=== PATIENT | male | born 1940 | race Caucasian/White ===

== ENCOUNTER 2017-06-01 13:14 | Emergency (ER) | payer MEDICARE, BC ==
[~2017-06-01] VITALS: Ht 175.3 cm; Wt 87.7 kg
[~2017-06-01 13:14] MED LIST: ALDACTONE 25MG25 MG PO; ASPIR-LOW81 MG PO; ATORVASTATIN PO; BETAPACE 120MG120 MG PO; BETAPACE AF120 MG PO; BUFFERED ASPIR325 M1 PO; CAPOTEN 12.512.5 MG PO; CAPTOPRIL12.5 MG PO; COMBIVENT INH14.7 GM IH; COREG 6.256.25 MG/TA PO; COREG12.5 MG PO; COUMADIN 22.5 MG/TAB PO; COUMADIN 5MG5 MG/TAB PO; DIGOXIN0.125 MG PO; DIOVAN40 MG PO; DIVAN; DOXYCYCLINE 10100 MG PO; DULCOLAX TAB5 MG PO; ECOTRIN325 MG PO; GLUCOSAMINE/CHONDROI PO; INDAPAMIDE PO; INSPRA25 MG; LASIX 40MG TABL40 MG PO; LIPITOR20 MG PO; LORTAB 5/500 501 TAB PO; LOVAZA1 GM; MAGNESIUM OXIDE PO; MVI PO; NORCO 325 MG-51 TAB PO; PROAIR HFA0.09 MG/AC IH; PULMICORT0.5 MG/21 IH; PULMICORT180 MCG/Ac IH; PULMOZYME; THORAZINE PO; WARFARIN SODIUM5 MG PO; ZETIA10 MG PO; ZOCOR80 MG PO
[2017-06-01 13:17] VITALS: TEMP 98.4
[2017-06-01] MEDS ORDERED: COUMADIN 5MG5 MG/TAB PO (14:00)
[2017-06-01] MEDS ORDERED: COREG12.5 MG PO (14:00)
[2017-06-01] MEDS ORDERED: LIPITOR 80MG80 MG PO (14:00)
[2017-06-01] MEDS ORDERED: LASIX 40MG TABL40 MG PO (14:00)
[2017-06-01] MEDS ORDERED: BETAPACEAF120 PO (14:01)
[2017-06-01 14:08] LABS: BASO # 0.1 (0.0-0.2); BASO % 0.6 % (0.0-2.0); EOS # 0.2 (0.0-0.7); EOS % 1.4 % (0-4.0); GRAN # 7.7 (1.4-6.5); GRAN % 73.1 % (42.2-75.2); HEMATOCRIT 40.2 % (42.0-52.0); LYMPH # 1.2 (1.2-3.4); LYMPH % 11.3 % (20.0-51.0); MEAN CELL VOLUME 94 fl (80.0-100.0); MEAN CORPUSCULAR HEMOGLOBIN 30 pg (27.0-31.0); MEAN CORPUSCULAR HGB CONC 32 g/dl (33.0-37.0); MEAN PLATELET VOLUME 12.9 fl (7.4-10.4); MONO # 1.4 (0.1-0.6); MONO % 13.3 % (1.7-9.3); PLATELET COUNT 140 K/mm3 (130-400); RED BLOOD COUNT 4.28 M/mm3 (4.20-5.60); WHITE BLOOD COUNT 10.5 K/mm3 (4.8-10.8)
[2017-06-01 14:13] LABS: INR 2.3 (0.8-3.0)
[2017-06-01 14:16] LABS: PARTIAL THROMBOPLASTIN TIME 39.2 SECONDS (26.0-37.0)
[2017-06-01 14:19] LABS: CALCIUM 8.7 mg/dL (8.4-10.2); CREATININE, serum 1.04 mg/dL (0.66-1.25); POTASSIUM 4.3 mmol/L (3.4-5.0)
[2017-06-01] MEDS ORDERED: NORCO 325 MG-51 TAB PO (16:01)
[2017-06-01] MEDS ORDERED: CLEOCIN HC150 MG/CAP PO (16:01)
[2017-06-01 16:26] VITALS: BP 128/70; PULSE 62
== END 2017-06-01 16:22 | disposition home or self-care (01) ==
LOC: COL.ER 13:14
PROVIDERS: Emergency Medicine
DX: S51.012A Laceration without foreign body of left elbow, initial encounter (principal); S70.02XA Contusion of left hip, initial encounter; Z79.01 Long term (current) use of anticoagulants; W18.39XA Other fall on same level, initial encounter; W22.8XXA Striking against or struck by other objects, initial encounter; Y92.009 Unspecified place in unspecified non-institutional (private) residence as the place of occurrence of the external cause

== ENCOUNTER 2017-06-12 17:19 | Emergency (ER) | payer MEDICARE, BC ==
[~2017-06-12 17:19] MED LIST changes: +BETAPACEAF120 PO; +CLEOCIN HC150 MG/CAP PO; +LIPITOR 80MG80 MG PO
[2017-06-12 17:24] VITALS: BP 126/64; PULSE 60; TEMP 98.3
== END 2017-06-12 17:29 | disposition home or self-care (01) ==
LOC: COL.ER 17:19
DX: S41.112D Laceration without foreign body of left upper arm, subsequent encounter (principal); Z79.01 Long term (current) use of anticoagulants

== ENCOUNTER 2017-11-22 07:00 | Day surgery (SDC) | payer MEDICARE, BC ==
[~2017-11-22] VITALS: Ht 175.3 cm; Wt 92.2 kg
[~2017-11-22 07:00] MED LIST changes: +COREG 25MG25 MG/TAB PO
[2017-11-22] MEDS ORDERED: PROAIR HFA0.09 MG/AC IH (07:20)
[2017-11-22] MEDS ORDERED: PULMICORT180 MCG/Ac IH (07:23)
[2017-11-22 07:46] VITALS: BP 140/77; PULSE 60; TEMP 97.7
[2017-11-22 09:11] VITALS: BP 120/77; PULSE 60; TEMP 98.1
[2017-11-22 09:26] VITALS: BP 136/77; PULSE 60
[2017-11-22 09:41] VITALS: BP 148/83; PULSE 61
== END 2017-11-22 09:50 | disposition home or self-care (01) ==
LOC: SDCO 07:00
DX: Z12.11 Encounter for screening for malignant neoplasm of colon (principal); K57.30 Diverticulosis of large intestine without perforation or abscess without bleeding; K64.0 First degree hemorrhoids; I10 Essential (primary) hypertension; I25.10 Atherosclerotic heart disease of native coronary artery without angina pectoris; I25.2 Old myocardial infarction; G47.33 Obstructive sleep apnea (adult) (pediatric); M19.012 Primary osteoarthritis, left shoulder; J44.9 Chronic obstructive pulmonary disease, unspecified; Z95.1 Presence of aortocoronary bypass graft; Z95.810 Presence of automatic (implantable) cardiac defibrillator; Z79.01 Long term (current) use of anticoagulants; Z88.8 Allergy status to other drugs, medicaments and biological substances; Z88.5 Allergy status to narcotic agent; Z86.010 Personal history of colon polyps; Z87.891 Personal history of nicotine dependence
CPT/HCPCS: J2704; J7030

== ENCOUNTER 2018-07-08 02:07 | Observation (INO) | payer MEDICARE ==
[~2018-07-08] VITALS: Ht 175.3 cm; Wt 89.6 kg
[2018-07-08] VITALS (228 sets, daily range): BP systolic 118–125; BP diastolic 71–86; PULSE 60–67; TEMP 97.9–98.8; O2SAT 87–100
[2018-07-08 02:36] LABS: BASO # 0.1 (0.0-0.2); BASO % 0.5 % (0.0-2.0); EOS # 0.3 (0.0-0.7); GRAN # 9.1 (1.4-6.5); HEMATOCRIT 44.1 % (42.0-52.0); HEMOGLOBIN 14.3 g/dl (13.5-18.0); LYMPH # 2.3 (1.2-3.4); LYMPH % 17.9 % (20.0-51.0); MEAN CELL VOLUME 91 fl (80.0-100.0); MEAN CORPUSCULAR HEMOGLOBIN 29 pg (27.0-31.0); MEAN CORPUSCULAR HGB CONC 32 g/dl (33.0-37.0); MEAN PLATELET VOLUME 12.9 fl (7.4-10.4); MONO # 1.2 (0.1-0.6); MONO % 9.1 % (1.7-9.3); PLATELET COUNT 200 K/mm3 (130-400); RED BLOOD COUNT 4.86 M/mm3 (4.20-5.60)
[2018-07-08 02:44] LABS: PROTHROMBIN TIME 34.6 SECONDS (9.7-12.8)
[2018-07-08 02:47] LABS: PARTIAL THROMBOPLASTIN TIME 45.3 SECONDS (26.0-37.0)
[2018-07-08 02:48] LABS: BILIRUBIN,TOTAL 0.5 mg/dL (0.0-1.0); CALCIUM 8.5 mg/dL (8.4-10.2); CREATININE, serum 1.19 mg/dL (0.66-1.25); POTASSIUM 4.5 mmol/L (3.4-5.0); TOTAL PROTEIN 6.9 gm/dL (6.4-8.2)
[2018-07-08 02:59] LABS: TROPONIN-I 0.025 ng/mL (0.000-0.034)
[2018-07-08] MEDS ORDERED: ASPIRIN E.C. 8181 MG PO (03:02)
[2018-07-08] MEDS ORDERED: MULTI VITAMINS1 TAB PO (03:14)
[2018-07-08] MEDS ORDERED: THE MEDICINE S200 M2 (03:16)
[2018-07-08] MEDS ORDERED: [UNRECOGNIZED DRUG - OTHER] PO (05:23)
[2018-07-08 05:48] LABS: CHOLESTEROL RISK RATIO 3.7
--- NOTE | 2018-07-08 07:10 | NUR ---
RECEIVED REPORT FROM DEEPAK DAUGHERTY.
--- NOTE | 2018-07-08 09:25 | NUR ---
REPORT GIVEN TO DEEPAK PEÑALOZA OF [facility] VIA TELEPHONE. ALL QUESTIONS ANSWERED. TROPONIN OF [phone] PASSED ON TO REPORT. PT LEFT AT 0923 VIA EMS. NITRO DRIP RUNNING UPON PT'S TRANSFER.
[2018-07-08 09:26] LABS: COLLECTION METHOD CLEAN CATCH
[2018-07-08 09:32] LABS: MUCOUS Present /lpf; PH 7 (5-8); SQUAMOUS EPITHELIAL None Seen /hpf; URINE APPEARANCE Clear; URINE BACTERIA None Seen /hpf; URINE BILIRUBIN Negative (NEGATIVE); URINE BLOOD Negative (NEGATIVE); URINE COLOR Straw; URINE GLUCOSE Negative (NEGATIVE); URINE KETONE Negative (NEGATIVE); URINE LEUKOCYTE ESTERASE Negative (NEGATIVE); URINE NITRATE Negative (NEGATIVE); URINE PROTEIN(semi-quant) Negative (NEGATIVE); URINE RBC 0-2 /hpf; URINE UROBILINOGEN Negative (NEGATIVE)
--- NOTE | 2018-07-08 11:26 | NUR ---
FAMILY (DAUGHTER LINETT0 NOTIFIED OF PT'S TRANSFER.
== END 2018-07-08 09:23 | disposition short-term general hospital (02) ==
LOC: COL.ER 02:07 → ICU 03:52
PROVIDERS: Emergency Medicine; Nurse Practitioner Family; ADMIT Internal Medicine
DX: I21.4 Non-ST elevation (NSTEMI) myocardial infarction (principal); E78.5 Hyperlipidemia, unspecified; I25.10 Atherosclerotic heart disease of native coronary artery without angina pectoris; I48.92 Unspecified atrial flutter; I42.9 Cardiomyopathy, unspecified; I11.0 Hypertensive heart disease with heart failure; I50.20 Unspecified systolic (congestive) heart failure; G47.33 Obstructive sleep apnea (adult) (pediatric); J44.9 Chronic obstructive pulmonary disease, unspecified; Z95.1 Presence of aortocoronary bypass graft; Z95.0 Presence of cardiac pacemaker; Z79.01 Long term (current) use of anticoagulants; Z79.82 Long term (current) use of aspirin; Z87.891 Personal history of nicotine dependence; Z82.49 Family history of ischemic heart disease and other diseases of the circulatory system; Z83.3 Family history of diabetes mellitus; Z88.5 Allergy status to narcotic agent; Z88.8 Allergy status to other drugs, medicaments and biological substances; Z91.048 Other nonmedicinal substance allergy status
CPT/HCPCS: J1940

== ENCOUNTER → 2018-10-02 | Outpatient (CLI) | payer MEDICARE, BC ==
[~2018-10-02] MED LIST changes: +ASPIRIN E.C. 8181 MG PO; +MULTI VITAMINS1 TAB PO; +THE MEDICINE S200 M2; +[UNRECOGNIZED DRUG - OTHER] PO
== END ==
LOC: COL.RAD 12:25
DX: K80.20 Calculus of gallbladder without cholecystitis without obstruction (principal); I25.10 Atherosclerotic heart disease of native coronary artery without angina pectoris; I51.7 Cardiomegaly; R06.6 Hiccough; R91.1 Solitary pulmonary nodule; Z95.1 Presence of aortocoronary bypass graft
CPT/HCPCS: Q9967

== ENCOUNTER → 2018-10-03 | Outpatient (CLI) | payer BC, MEDICARE | LOC: COL.RAD 07:45 | DX: K22.4 Dyskinesia of esophagus (principal); K21.9 Gastro-esophageal reflux disease without esophagitis; Z95.0 Presence of cardiac pacemaker ==

== ENCOUNTER 2018-10-25 03:46 | Inpatient (IN) | payer BC, MEDICARE ==
[~2018-10-25] VITALS: Ht 175.3 cm; Wt 86.0 kg
[2018-10-25 04:27] LABS: HEMATOCRIT 33.9 % (42.0-52.0); HEMOGLOBIN 11.2 g/dl (13.5-18.0); MEAN CELL VOLUME 84 fl (80.0-100.0); MEAN CORPUSCULAR HEMOGLOBIN 28 pg (27.0-31.0); MEAN CORPUSCULAR HGB CONC 33 g/dl (33.0-37.0); MEAN PLATELET VOLUME 12.8 fl (7.4-10.4); PLATELET COUNT 177 K/mm3 (130-400); RED BLOOD COUNT 4.02 M/mm3 (4.20-5.60); REDCELL DISTRIBUTION WIDTH-CV 15.9 % (11.5-14.5)
[2018-10-25] MEDS ORDERED: TOPROL XL 25MG25 MG PO (04:43)
[2018-10-25] MEDS ORDERED: ALDACTONE 25MG25 M1 PO (04:43)
[2018-10-25] MEDS ORDERED: CORDARONE200 MG/TAB PO (04:44)
[2018-10-25] MEDS ORDERED: PLAVIX 75MG TAB75 MG PO (04:45)
[2018-10-25] MEDS ORDERED: XANAX 0.5MG0.5 MG PO (04:46)
[2018-10-25] MEDS ORDERED: NITROSTAT0.4 MG/TAB SL (04:46)
[2018-10-25] MEDS ORDERED: LIORESAL 1010 MG/TAB PO (04:47)
[2018-10-25] MEDS ORDERED: PRILOSEC 20MG20 MG PO (04:47)
[2018-10-25] MEDS ORDERED: NEURONTIN300 MG/CAP PO (04:47)
[2018-10-25] MEDS ORDERED: CELEBREX 1100 MG/CAP PO (04:48)
[2018-10-25 04:49] LABS: ALBUMIN 3.9 gm/dL (3.5-5.0); BILIRUBIN,TOTAL 0.8 mg/dL (0.0-1.0); CALCIUM 8.8 mg/dL (8.4-10.2); CREATININE, serum 1.14 (0.66-1.25); POTASSIUM 4.5 mmol/L (3.4-5.0); TOTAL PROTEIN 7.3 gm/dL (6.4-8.2)
[2018-10-25 05:08] LABS: PROTHROMBIN TIME 45.4 SECONDS (9.7-12.8)
[2018-10-25 05:16] LABS: ANISOCYTOSIS 1+; BAND 18 % (0-10); LYMPHOCYTE 6 % (20.0-51.0); NEUTROPHILS 67 % (42.0-75.2); PLATELET ESTIMATE NORMAL (NORMAL)
[2018-10-25 05:17] LABS: BURR CELLS 2+
[2018-10-25 05:18] LABS: OVALOCYTES 1+
[2018-10-25 05:24] LABS: SCHISTOCYTES 1+
[2018-10-25 06:28] LABS: COLLECTION METHOD CLEAN CATCH
[2018-10-25 06:34] LABS: MUCOUS Present /lpf; PH 5 (5-8); SQUAMOUS EPITHELIAL None Seen /hpf; URINE APPEARANCE Clear; URINE BACTERIA Rare /hpf; URINE BILIRUBIN Negative (NEGATIVE); URINE BLOOD Negative (NEGATIVE); URINE COLOR Yellow; URINE GLUCOSE Negative (NEGATIVE); URINE KETONE Negative (NEGATIVE); URINE LEUKOCYTE ESTERASE Negative (NEGATIVE); URINE NITRATE Negative (NEGATIVE); URINE PROTEIN(semi-quant) 2+ (NEGATIVE); URINE UROBILINOGEN Negative (NEGATIVE)
[2018-10-25 07:26] LABS: STREP SCREEN NEGATIVE
--- NOTE | 2018-10-25 09:43 | NUR ---
PATIENT ARRIVED TO ROOM 309 VIA WHEELCHAIR.ORIENTED TO ROOM.RATES PAIN AT 7/10 TO EXTREMITIES.WILL CONTINUE TO MONITOR.CALL LIGHT IN REACH
--- NOTE | 2018-10-25 11:22 | NUR ---
PT TAKEN TO [facility].
--- NOTE | 2018-10-25 12:42 | NUR ---
PATIENT RETIURN FROM [facility].NO VEGETATION NOTED.CATHY NEGATIVE.PATIENT VSS STABLE.PATIENT RESTING IN BED AT THIS TIME.LUNCH ORDERED.WILL CONTINUE TO MONITOR.CALL LIGHT IN REACH
[2018-10-25 13:41] VITALS: BP 125/58; PULSE 62; TEMP 98.1
[2018-10-25 16:18] VITALS: BP 125/69; PULSE 65; TEMP 98.9
--- NOTE | 2018-10-25 18:28 | NUR ---
PATIENT RESTING IN BED AT THIS TIME.EXTRMITIES SWOLLEN AND WARM.TESTS ORDERED AND IMPLEMENTED.INFECTIOUS DISEASE CONSULTED AND ORDERED VANCOMYCIN AND ROCEPHIN.VSS.NO OTHER NEEDS VOICED.FAMILY AT BEDSIDE.WILL CONTINUE TO MONITOR.CALL LIGHT IN REACH
--- NOTE | 2018-10-25 18:57 | NUR ---
REPORT GIVEN TO DEEPAK XIAO.
--- NOTE | 2018-10-25 20:00 | NUR ---
PT IN BED WITH HOB ELEVATED TO 45 DEGREE ANGLE. DENIES PAIN OR DISCOMFORT, BILATERAL HANDS HAS EDEMA +2. PT ASSISTED WITH COVERING HIM AND MAKING HIM COMFORTABLE. NO FURTHER NEEDS CALL LIGHT WITHIN REACH.
[2018-10-25 23:20] LABS: RHEUMATOID FACTOR-SCREEN <15 IU/mL (0-29)
[2018-10-26] VITALS (7 sets, daily range): BP systolic 111–137; BP diastolic 60–98; PULSE 59–62; TEMP 96.9–98.4
--- NOTE | 2018-10-26 01:24 | NUR ---
PT IN BED WITH HOB ELEVATED TO 45 DEGREE ANGLE. PT'S HANDS ARE STILL SWOLLEN ABOUT A +2 EDEMA. NO EDEMA NOTED IN HIS BLE. PT DENIES PAIN OR DISCOMFORT AND NO FURTHER NEEDS, CALL LIGHT WITHIN REACH.
--- NOTE | 2018-10-26 06:10 | NUR ---
PT HAD AN UNEVENTFUL NIGHT. PT HAS BEEN IN BED MOST OF THE NIGHT BUT DID AMBULATE AND GO TO THE BATHROOM BY SELF, GAIT STEADY. PT WAS GIVEN WATER REQUESTED, BUT NO FURTHER NEEDS. CALL LIGHT WITHIN REACH.
[2018-10-26 07:12] LABS: MEAN CELL VOLUME 87 fl (80.0-100.0); MEAN CORPUSCULAR HEMOGLOBIN 28 pg (27.0-31.0); MEAN CORPUSCULAR HGB CONC 32 g/dl (33.0-37.0); MEAN PLATELET VOLUME 13.7 fl (7.4-10.4); PLATELET COUNT 162 K/mm3 (130-400); RED BLOOD COUNT 3.62 M/mm3 (4.20-5.60); REDCELL DISTRIBUTION WIDTH-CV 15.9 % (11.5-14.5)
[2018-10-26 07:14] LABS: HEMATOCRIT 31.4 % (42.0-52.0)
[2018-10-26 07:20] LABS: CALCIUM 8.4 mg/dL (8.4-10.2); CREATININE, serum 0.97 (0.66-1.25)
[2018-10-26 07:36] LABS: BAND 2 % (0-10); BASOPHIL 2 % (0-2); BURR CELLS 1+; LYMPHOCYTE 10 % (20.0-51.0); NEUTROPHILS 80 % (42.0-75.2); PLATELET ESTIMATE NORMAL (NORMAL)
[2018-10-26 07:38] LABS: OVALOCYTES 1+; TOXIC GRANULATION PRESENT
[2018-10-26 07:47] LABS: THYROID STIMULATING HORMONE 9.66 uIU/mL (0.465-4.680)
[2018-10-26 07:57] LABS: INR 4.8 (0.8-3.0)
[2018-10-26 08:00] LABS: PROTHROMBIN TIME 54.4 SECONDS (9.7-12.8)
[2018-10-26 08:20] LABS: EBV NUCLEAR ANTIGEN IGG Positive (())
[2018-10-26 08:23] LABS: EBV EARLY ANTIGEN IGG Positive (())
[2018-10-26 08:49] LABS: EBV IGM AB Negative (())
[2018-10-26 09:35] LABS: LYME DISEASE ANTIBODIES Negative (Negative)
[2018-10-26 11:46] LABS: RPR (VDRL) XXX
--- NOTE | 2018-10-26 11:46 | NUR ---
Order placed for patient to receive wound care. There is a mepilex dressing placed to right beck. Patient wishes to have dressing changed when he wants. Offered to change today and declined.
--- NOTE | 2018-10-26 13:54 | NUR ---
CHANCE hendrickson met with the patient to discuss discharge planning. The patient lives in [place] with his , Shayla, and daughter Veronica. The patient reports independence with ADLs and has no DME. The patients PCP is Dr. Sanju Bryan and he gets his medications from [facility]. The patient reports no difficulties obtaining his medications. The patient does not have DPOA-HC in EMR and does not have one completed but states his daughter and would make those decisions for him. CHANCE hendrickson asked if the patient would be interested in completing a DPOA-HC form in the hospital and the patient refused. The patient plans to return home with his and daughter upon discharge. No additional needs at this time.
--- NOTE | 2018-10-26 17:03 | NUR ---
Patient walking in mijares, was taken fresh ice water. States he is having very little pain. Swelling is still noted to hands and feet. Ambulates with steady gait. Call light is within reach on bed.
--- NOTE | 2018-10-26 20:59 | NUR ---
PT IN BED WITH HOB AT 45 DEGREE ANGLE. PT DENIES PAIN OR DISCOMFORT. PT ADVISES THAT HE FEELS LIKE HE IS GETTING BETTER. RIGHT HAND LESS SWOLLEN THEN LEFT, BUT PT ADVISES THAT HE CAN CLOSE HIS HAND TODAY. PT HAS +3 EDEMA IN BLE. PT ADVISES THAT LEGS ARE USUALLY SWOLLEN. PT DID NOT REMEMBER GETTING HIS MEDICATIONS THIS MORNING. REPORT FOR DAYSHIFT NURSE ADVISED THAT HE SLEPT MOST OF THE DAY AND HE SLEPT HARD. PT VERY TALKATIVE, BUT PLEASANT AND COOPERATIVE. PT HAS NO FURTHER NEEDS AND CALL LIGHT WITHIN REACH.
--- NOTE | 2018-10-26 22:45 | NUR ---
PT IN BED WITH HOB ELEVATED TO 45 DEGREE ANGLE. PT IS RESTING AND HAS TV ON. NO S/S OF PAIN OR DISCOMFORT AND CALL LIGHT WITHIN REACH.
[2018-10-27 04:08] VITALS: BP 130/69; PULSE 59; TEMP 98.6
--- NOTE | 2018-10-27 04:55 | NUR ---
PT SLEPT MOST OF NIGHT WITH CPAP ON. NO C/O PAIN, BUT PT'S EYES FELT ITCHY. GAVE COOL WASHCLOTH FOR COMFORT. PT RESTING WITH WASHCLOTH ON EYES. PT HAS NO FURTHER NEEDS, CALL LIGHT WITHIN REACH.
--- NOTE | 2018-10-27 06:54 | NUR ---
Received report. Patient is observed to be up and walking in mijares, gait is steady. Is stating he is having minimal to no pain. Call light is within reach.
[2018-10-27 07:13] LABS: BASO % 0.1 % (0.0-2.0); GRAN # 10.1 (1.4-6.5); GRAN % 85.9 % (42.2-75.2); HEMOGLOBIN 10.4 g/dl (13.5-18.0); LYMPH # 0.6 (1.2-3.4); LYMPH % 5.3 % (20.0-51.0); MEAN CELL VOLUME 87 fl (80.0-100.0); MEAN CORPUSCULAR HEMOGLOBIN 28 pg (27.0-31.0); MEAN CORPUSCULAR HGB CONC 32 g/dl (33.0-37.0); MEAN PLATELET VOLUME 13.8 fl (7.4-10.4); MONO % 8.1 % (1.7-9.3); PLATELET COUNT 185 K/mm3 (130-400); RED BLOOD COUNT 3.74 M/mm3 (4.20-5.60); REDCELL DISTRIBUTION WIDTH-CV 16.1 % (11.5-14.5)
[2018-10-27 07:17] LABS: HEMATOCRIT 32.5 % (42.0-52.0)
[2018-10-27 07:29] VITALS: BP 133/71; PULSE 65; TEMP 97.5
[2018-10-27 07:29] LABS: INR 4.9 (0.8-3.0)
[2018-10-27 07:32] LABS: PROTHROMBIN TIME 55.3 SECONDS (9.7-12.8)
[2018-10-27 07:38] LABS: CALCIUM 8.8 mg/dL (8.4-10.2); CREATININE, serum 1.03 (0.66-1.25); POTASSIUM 4.4 mmol/L (3.4-5.0)
[2018-10-27] MEDS ORDERED: PREDNISONE20 MG PO (10:02)
--- NOTE | 2018-10-27 12:52 | NUR ---
First visit from the sign poster. No needs right now.
--- NOTE | 2018-10-27 13:35 | NUR ---
Patient discharged home at this time accompanied by via private car. Was assisted to car via wheelchair. Personal belongings sent with patient. Verbalized understading of discharge instructions.
== END 2018-10-27 13:35 | disposition home or self-care (01) | DRG 554 ==
LOC: COL.ER 03:46 → MEDICAL 07:01
PROVIDERS: Emergency Medicine; Physician Assistant; ADMIT Family Medicine
DX: M13.0 Polyarthritis, unspecified (principal); J90 Pleural effusion, not elsewhere classified; I50.20 Unspecified systolic (congestive) heart failure; I13.0 Hypertensive heart and chronic kidney disease with heart failure and stage 1 through stage 4 chronic kidney disease, or unspecified chronic kidney disease; R65.10 Systemic inflammatory response syndrome (SIRS) of non-infectious origin without acute organ dysfunction; R50.9 Fever, unspecified; I25.10 Atherosclerotic heart disease of native coronary artery without angina pectoris; I10 Essential (primary) hypertension; Z95.1 Presence of aortocoronary bypass graft; Z95.0 Presence of cardiac pacemaker; I25.2 Old myocardial infarction; G47.33 Obstructive sleep apnea (adult) (pediatric); N18.2 Chronic kidney disease, stage 2 (mild); I48.91 Unspecified atrial fibrillation; Z79.01 Long term (current) use of anticoagulants; E78.5 Hyperlipidemia, unspecified; R06.6 Hiccough
CPT/HCPCS: 99223-AI; 99232-AI; 99239; A4216; A6209; J0696; J2543; J2704; J3010; J3370; J7030; J7050; J7512

== ENCOUNTER 2018-10-30 13:23 | Outpatient (RCR) | payer BC, MEDICARE ==
[~2018-10-30 13:23] MED LIST changes: +ALDACTONE 25MG25 M1 PO; +CELEBREX 1100 MG/CAP PO; +CORDARONE200 MG/TAB PO; +LIORESAL 1010 MG/TAB PO; +NEURONTIN300 MG/CAP PO; +NITROSTAT0.4 MG/TAB SL; +PLAVIX 75MG TAB75 MG PO; +PREDNISONE20 MG PO; +PRILOSEC 20MG20 MG PO; +TOPROL XL 25MG25 MG PO; +XANAX 0.5MG0.5 MG PO
== END 2018-10-31 | disposition home or self-care (01) ==
LOC: COL.CR
DX: Z48.812 Encounter for surgical aftercare following surgery on the circulatory system (principal); Z98.61 Coronary angioplasty status; I21.9 Acute myocardial infarction, unspecified

== ENCOUNTER 2018-11-06 12:05 | Outpatient (RCR) | payer BC | END 2018-11-10 07:28 | disposition home or self-care (01) | LOC: COL.CR 12:05 | DX: Z48.812 Encounter for surgical aftercare following surgery on the circulatory system (principal); Z98.61 Coronary angioplasty status ==

== ENCOUNTER 2019-02-16 14:14 | Outpatient (RCR) | payer SELFPAY | END 2019-02-19 | disposition home or self-care (01) | LOC: COL.CR | DX: Z02.89 Encounter for other administrative examinations (principal) ==

== ENCOUNTER → 2019-03-22 | Outpatient (CLI) | payer MEDICARE | LOC: COL.RAD 13:11 | DX: Z01.812 Encounter for preprocedural laboratory examination (principal); J32.3 Chronic sphenoidal sinusitis; G31.9 Degenerative disease of nervous system, unspecified; G45.0 Vertebro-basilar artery syndrome; R06.6 Hiccough | CPT/HCPCS: Q9967 ==

== ENCOUNTER 2019-05-14 08:21 | Outpatient (RCR) | payer MEDICARE ==
[2019-05-20] MEDS ORDERED: SYNTHROID0.05 MG/TA PO (16:51)
[2019-05-20] MEDS ORDERED: LASIX 20MG TABL20 MG PO (16:51)
[2019-05-20] MEDS ORDERED: ALDACTONE 25MG25 M1 PO (16:52)
[2019-05-20] MEDS ORDERED: CORDARONE200 MG/TAB PO (16:53)
[2019-05-20] MEDS ORDERED: COREG 6.256.25 MG/TA PO (16:53)
[2019-05-20] MEDS ORDERED: BRILINTA90 MG PO (16:54)
[2019-05-20] MEDS ORDERED: LIORESAL 1010 MG/TAB PO (16:54)
[2019-05-20] MEDS ORDERED: NATURE'S BLEND100 M2 PO (16:54)
[2019-05-20] MEDS ORDERED: MULTI VITAMINS1 TAB PO (16:55)
[2019-05-20] MEDS ORDERED: GLUCOSAMINE & C1 TAB PO (16:56)
[2019-05-20] MEDS ORDERED: UBIQUINOL100 MG PO (16:56)
[2019-05-20] MEDS ORDERED: XANAX .25M0.25 MG/TA PO (16:57)
[2019-05-20] MEDS ORDERED: NITROSTAT0.4 MG/TAB SL (16:57)
[2019-05-20] MEDS ORDERED: ASPIRIN E.C. 8181 MG PO (17:11)
[2019-05-20] MEDS ORDERED: COUMADIN 5MG5 MG/TAB PO (17:11)
[2019-05-20] MEDS ORDERED: LIPITOR 40MG TA40 MG PO (17:12)
== END 2019-08-12 | disposition home or self-care (01) ==
LOC: WSST
DX: R13.13 Dysphagia, pharyngeal phase (principal)

== ENCOUNTER 2019-05-20 15:46 | Emergency (ER) | payer MEDICARE ==
[~2019-05-20] VITALS: Ht 175.3 cm; Wt 75.0 kg
[2019-05-20 16:45] LABS: COLLECTION METHOD CLEAN CATCH
[2019-05-20 16:50] LABS: BASO # 0.1 (0.0-0.2); BASO % 0.7 % (0.0-2.0); EOS # 0.3 (0.0-0.7); EOS % 2.5 % (0-4.0); GRAN # 7.7 (1.4-6.5); GRAN % 75.4 % (42.2-75.2); HEMOGLOBIN 10.9 g/dl (13.5-18.0); LYMPH # 0.8 (1.2-3.4); LYMPH % 7.9 % (20.0-51.0); MEAN CELL VOLUME 81 fl (80.0-100.0); MEAN CORPUSCULAR HEMOGLOBIN 26 pg (27.0-31.0); MEAN CORPUSCULAR HGB CONC 32 g/dl (33.0-37.0); MEAN PLATELET VOLUME 12.7 fl (7.4-10.4); MONO # 1.3 (0.1-0.6); PLATELET COUNT 244 K/mm3 (130-400); RED BLOOD COUNT 4.23 M/mm3 (4.20-5.60); REDCELL DISTRIBUTION WIDTH-CV 20.1 % (11.5-14.5)
[2019-05-20] MEDS ORDERED: SYNTHROID0.05 MG/TA PO (16:51)
[2019-05-20] MEDS ORDERED: LASIX 20MG TABL20 MG PO (16:51)
[2019-05-20 16:52] LABS: HEMATOCRIT 34.4 % (42.0-52.0)
[2019-05-20] MEDS ORDERED: ALDACTONE 25MG25 M1 PO (16:52)
[2019-05-20] MEDS ORDERED: CORDARONE200 MG/TAB PO (16:53)
[2019-05-20] MEDS ORDERED: COREG 6.256.25 MG/TA PO (16:53)
[2019-05-20] MEDS ORDERED: BRILINTA90 MG PO (16:54)
[2019-05-20] MEDS ORDERED: LIORESAL 1010 MG/TAB PO (16:54)
[2019-05-20] MEDS ORDERED: NATURE'S BLEND100 M2 PO (16:54)
[2019-05-20] MEDS ORDERED: MULTI VITAMINS1 TAB PO (16:55)
[2019-05-20] MEDS ORDERED: UBIQUINOL100 MG PO (16:56)
[2019-05-20] MEDS ORDERED: GLUCOSAMINE & C1 TAB PO (16:56)
[2019-05-20 16:57] LABS: PH 7 (5-8); SQUAMOUS EPITHELIAL None Seen /hpf; URINE APPEARANCE Clear; URINE BACTERIA None Seen /hpf; URINE BILIRUBIN Negative (NEGATIVE); URINE BLOOD Negative (NEGATIVE); URINE COLOR Yellow; URINE GLUCOSE Negative (NEGATIVE); URINE KETONE Negative (NEGATIVE); URINE LEUKOCYTE ESTERASE Negative (NEGATIVE); URINE NITRATE Negative (NEGATIVE); URINE PROTEIN(semi-quant) Negative (NEGATIVE); URINE RBC 0-2 /hpf; URINE UROBILINOGEN Negative (NEGATIVE)
[2019-05-20] MEDS ORDERED: XANAX .25M0.25 MG/TA PO (16:57)
[2019-05-20] MEDS ORDERED: NITROSTAT0.4 MG/TAB SL (16:57)
[2019-05-20 17:07] LABS: ALANINE AMINOTRANSFERASE 86 U/L (21-72); ALBUMIN 4.4 gm/dL (3.5-5.0); ALKALINE PHOSPHATASE 110 U/L (50-136); ANION GAP 11 mmol/L (7-16); AST,SGOT 63 U/L (15-37); BLOOD UREA NITROGEN 31 mg/dL (9-20); C-REACTIVE PROTEIN 0.7 mg/dL (0.0-0.9); CALCIUM 8.7 mg/dL (8.4-10.2); CARBON DIOXIDE 28 mmol/L (22-30); CHLORIDE 101 mmol/L (98-107); CREATINE KINASE 443 U/L (55-170); CREATININE, serum 1.35 (0.66-1.25); GLUCOSE 98 mg/dL (74-106); POTASSIUM 3.7 mmol/L (3.4-5.0); SODIUM 139 mmol/L (137-145); TOTAL PROTEIN 7.5 gm/dL (6.4-8.2)
[2019-05-20] MEDS ORDERED: COUMADIN 5MG5 MG/TAB PO (17:11)
[2019-05-20] MEDS ORDERED: ASPIRIN E.C. 8181 MG PO (17:11)
[2019-05-20] MEDS ORDERED: LIPITOR 40MG TA40 MG PO (17:12)
[2019-05-20 17:18] LABS: TROPONIN-I < 0.012 ng/mL (0.000-0.035)
[2019-05-20 17:40] LABS: INR 2.1 (0.8-3.0); PROTHROMBIN TIME 24.7 SECONDS (9.7-12.8)
[2019-05-20 19:09] VITALS: BP 116/63; PULSE 69; TEMP 97
== END 2019-05-20 19:09 | disposition home or self-care (01) ==
LOC: COL.ER 15:46
PROVIDERS: Emergency Medicine
DX: I50.9 Heart failure, unspecified (principal); J90 Pleural effusion, not elsewhere classified; K40.90 Unilateral inguinal hernia, without obstruction or gangrene, not specified as recurrent; I10 Essential (primary) hypertension; E78.5 Hyperlipidemia, unspecified; J44.9 Chronic obstructive pulmonary disease, unspecified; I25.10 Atherosclerotic heart disease of native coronary artery without angina pectoris; Z79.82 Long term (current) use of aspirin

== ENCOUNTER 2019-05-21 15:24 | Outpatient (RCR) | payer SELFPAY ==
[~2019-05-21 15:24] MED LIST changes: +BRILINTA90 MG PO; +GLUCOSAMINE & C1 TAB PO; +LASIX 20MG TABL20 MG PO; +LIPITOR 40MG TA40 MG PO; +NATURE'S BLEND100 M2 PO; +SYNTHROID0.05 MG/TA PO; +UBIQUINOL100 MG PO; +XANAX .25M0.25 MG/TA PO
== END 2019-05-22 | disposition home or self-care (01) ==
LOC: COL.CR
DX: Z02.89 Encounter for other administrative examinations (principal)

== ENCOUNTER → 2019-06-05 | Outpatient (CLI) | payer MEDICARE | LOC: COL.RAD 05-31 08:00 | DX: R13.10 Dysphagia, unspecified (principal) ==

== ENCOUNTER → 2019-07-20 | Outpatient (CLI) | payer MEDICARE | LOC: COL.RAD 12:26 | DX: Z01.818 Encounter for other preprocedural examination (principal); H05.241 Constant exophthalmos, right eye; E07.9 Disorder of thyroid, unspecified | CPT/HCPCS: Q9967 ==

== ENCOUNTER 2019-08-20 15:49 | Outpatient (RCR) | payer SELFPAY | END 2019-08-21 | disposition home or self-care (01) | LOC: COL.CR | DX: Z02.89 Encounter for other administrative examinations (principal) ==

== ENCOUNTER 2019-08-29 12:02 | Outpatient (RCR) | payer MEDICARE | END 2019-11-20 | disposition home or self-care (01) | LOC: COL.CR | DX: Z02.89 Encounter for other administrative examinations (principal) ==

== ENCOUNTER 2020-02-13 16:08 | Outpatient (RCR) | payer SELFPAY ==
[~2020-02-13 16:08] MED LIST changes: +OMNICEF 300MG300 MG PO
== END 2020-02-14 | disposition home or self-care (01) ==
LOC: COL.CR
DX: Z02.89 Encounter for other administrative examinations (principal)

== ENCOUNTER 2020-05-14 15:16 | Outpatient (RCR) | payer SELFPAY | END 2020-05-15 | disposition home or self-care (01) | LOC: COL.CR | DX: Z02.89 Encounter for other administrative examinations (principal) ==

== ENCOUNTER 2020-08-15 14:49 | Outpatient (RCR) | payer SELFPAY | END 2020-08-17 | disposition home or self-care (01) | LOC: COL.CR | DX: Z02.89 Encounter for other administrative examinations (principal) ==

== ENCOUNTER 2020-09-18 21:14 | Emergency (ER) | payer BC ==
[~2020-09-18] VITALS: Ht 175.3 cm; Wt 66.4 kg
[2020-09-18 21:21] VITALS: BP 134/67; TEMP 97.8
[2020-09-18 22:04] VITALS: PULSE 77
== END 2020-09-18 22:05 | disposition home or self-care (01) ==
LOC: COL.ER 21:14
DX: T18.5XXA Foreign body in anus and rectum, initial encounter (principal); I48.91 Unspecified atrial fibrillation; I12.9 Hypertensive chronic kidney disease with stage 1 through stage 4 chronic kidney disease, or unspecified chronic kidney disease; E78.5 Hyperlipidemia, unspecified; N18.2 Chronic kidney disease, stage 2 (mild); Z95.0 Presence of cardiac pacemaker; Z87.891 Personal history of nicotine dependence; Z88.6 Allergy status to analgesic agent; Z88.8 Allergy status to other drugs, medicaments and biological substances; Z79.02 Long term (current) use of antithrombotics/antiplatelets; Z79.01 Long term (current) use of anticoagulants; Z79.82 Long term (current) use of aspirin

== ENCOUNTER 2020-11-14 17:06 | Outpatient (RCR) | payer SELFPAY | END 2020-11-16 | disposition home or self-care (01) | LOC: COL.CR | DX: Z02.89 Encounter for other administrative examinations (principal) ==

== ENCOUNTER → 2021-05-06 | Outpatient (CLI) | payer MEDICARE | LOC: COL.PUL 04-27 08:00 | DX: J43.1 Panlobular emphysema (principal) ==

== ENCOUNTER → 2021-07-24 | Outpatient (CLI) | payer SELFPAY | LOC: COL.CR 05:33 | DX: Z02.89 Encounter for other administrative examinations (principal) ==

== ENCOUNTER 2021-08-22 21:23 | Emergency (ER) | payer MEDICARE ==
[~2021-08-22] VITALS: Ht 172.7 cm; Wt 65.9 kg
[2021-08-22 21:30] VITALS: TEMP 99.1
[2021-08-22 22:20] LABS: BASO # 0.1 K/mm3 (0.0-0.2); BASO % 0.4 % (0.0-2.0); EOS # 0.1 K/mm3 (0.0-0.7); EOS % 0.4 % (0.0-4.0); GRAN # 17.7 K/mm3 (1.4-6.5); GRAN % 87.8 % (42.2-75.2); HEMATOCRIT 39.4 % (42.0-52.0); HEMOGLOBIN 13.2 g/dl (13.5-18.0); LYMPH # 0.3 K/mm3 (1.2-3.4); LYMPH % 1.6 % (20.0-51.0); MEAN CELL VOLUME 94 fl (80.0-100.0); MEAN CORPUSCULAR HEMOGLOBIN 31 pg (27-31); MEAN CORPUSCULAR HGB CONC 34 g/dl (33.0-37.0); MEAN PLATELET VOLUME 12.6 fl (7.4-10.4); MONO # 1.9 K/mm3 (0.1-0.6); MONO % 9.2 % (1.7-9.3); PLATELET COUNT 181 K/mm3 (130-400); RED BLOOD COUNT 4.21 M/mm3 (4.20-5.60); REDCELL DISTRIBUTION WIDTH-CV 15.3 % (11.5-14.5)
[2021-08-22 22:35] LABS: ALBUMIN 4.1 gm/dL (3.4-4.8); BILIRUBIN,TOTAL 1.2 mg/dL (0.2-1.2); C-REACTIVE PROTEIN 1.21 mg/dL (0.00-0.50); CALCIUM 9.1 mg/dL (8.4-10.2); CREATININE, serum 1.52 mg/dL (0.72-1.25); POTASSIUM 4.1 mmol/L (3.5-4.5); TOTAL PROTEIN 7.1 gm/dL (6.2-8.1)
[2021-08-22 22:55] LABS: ANISOCYTOSIS 1+; BASOPHIL 1 % (0-2); EOSINOPHIL 2 % (0-4); LYMPHOCYTE 3 % (20.0-51.0); NEUTROPHILS 87 % (42.0-75.2); OVALOCYTES 1+; PLATELET ESTIMATE NORMAL (NORMAL); TEAR DROP CELLS 1+
[2021-08-22 22:56] LABS: BURR CELLS 2+; HYPOCHROMIA 2+
[2021-08-22] MEDS ORDERED: DOXYCYCLINE 10100 MG PO (23:50)
[2021-08-23 00:02] VITALS: BP 115/57; PULSE 60
== END 2021-08-23 00:02 | disposition home or self-care (01) ==
LOC: COL.ER 21:23
PROVIDERS: Physician Assistant
DX: B34.9 Viral infection, unspecified (principal); I11.0 Hypertensive heart disease with heart failure; I50.1 Left ventricular failure, unspecified; D72.829 Elevated white blood cell count, unspecified; Z95.5 Presence of coronary angioplasty implant and graft; Z95.810 Presence of automatic (implantable) cardiac defibrillator; Z95.1 Presence of aortocoronary bypass graft; Z20.822 Contact with and (suspected) exposure to COVID-19
CPT/HCPCS: J0696; J7030

== ENCOUNTER 2021-10-16 10:20 | Outpatient (RCR) | payer SELFPAY | END 2021-10-17 | LOC: COL.CR | DX: Z29.8 Encounter for other specified prophylactic measures (principal) ==

== ENCOUNTER 2021-10-19 08:45 | Outpatient (RCR) | payer SELFPAY | END 2021-11-17 | LOC: COL.CR | DX: Z29.8 Encounter for other specified prophylactic measures (principal) ==

== ENCOUNTER 2021-12-16 14:55 | Outpatient (RCR) | payer SELFPAY | END 2021-12-17 | LOC: COL.CR | DX: Z29.8 Encounter for other specified prophylactic measures (principal) ==

== ENCOUNTER 2022-01-15 13:05 | Outpatient (RCR) | payer SELFPAY | END 2022-01-17 | LOC: COL.CR | DX: Z29.8 Encounter for other specified prophylactic measures (principal) ==

== ENCOUNTER 2022-02-15 15:41 | Outpatient (RCR) | payer SELFPAY | END 2022-02-17 | LOC: COL.CR | DX: Z29.8 Encounter for other specified prophylactic measures (principal) ==

== ENCOUNTER → 2022-08-10 | Outpatient (CLI) | payer MEDICARE | LOC: COL.VAS 12:09 | DX: I08.0 Rheumatic disorders of both mitral and aortic valves (principal); J90 Pleural effusion, not elsewhere classified; I47.20 Ventricular tachycardia, unspecified ==

== ENCOUNTER 2023-10-11 13:40 | Emergency (ER) | payer MEDICARE ==
[~2023-10-11] VITALS: Ht 175.3 cm; Wt 66.4 kg
[~2023-10-11 13:40] MED LIST changes: +FLONASEALLERGY NS; +K-TAB20 PO; +PROVENTIL0.09 MG/A1 IH; +SYNTHROID0.1 MG/TAB PO; +ZAROXOLYN 2.52.5 MG PO
[2023-10-11 13:54] VITALS: TEMP 98.2
[2023-10-11 14:49] LABS: BASO # 0.1 K/mm3 (0.0-0.2); BASO % 0.6 % (0.0-2.0); EOS # 0.2 K/mm3 (0.0-0.7); EOS % 1.4 % (0.0-4.0); GRAN # 9.6 K/mm3 (1.4-6.5); GRAN % 79.1 % (42.2-75.2); HEMATOCRIT 42.7 % (42.0-52.0); HEMOGLOBIN 14.1 g/dl (13.5-18.0); LYMPH # 0.8 K/mm3 (1.2-3.4); LYMPH % 6.7 % (20.0-51.0); MEAN CELL VOLUME 94 fl (80.0-100.0); MEAN CORPUSCULAR HEMOGLOBIN 31 pg (27-31); MEAN CORPUSCULAR HGB CONC 33 g/dl (33.0-37.0); MEAN PLATELET VOLUME 12.3 fl (7.4-10.4); MONO # 1.4 K/mm3 (0.1-0.6); MONO % 11.3 % (1.7-9.3); PLATELET COUNT 175 K/mm3 (130-400); RED BLOOD COUNT 4.56 M/mm3 (4.20-5.60); REDCELL DISTRIBUTION WIDTH-CV 15.9 % (11.5-14.5)
[2023-10-11 15:10] LABS: ALBUMIN 3.7 g/dL (3.4-4.8); C-REACTIVE PROTEIN 0.82 mg/dL (0.00-0.50); CALCIUM 9.3 mg/dL (8.4-10.2); CREATININE, serum 1.47 mg/dL (0.72-1.25); POTASSIUM 3.9 mEq/L (3.5-4.5); TOTAL PROTEIN 7.4 g/dl (6.2-8.1)
[2023-10-11 15:51] LABS: COLLECTION METHOD CLEAN CATCH
[2023-10-11] MEDS ORDERED: NS 100 ML IV SCH (16:04)
[2023-10-11 16:05] LABS: PH 6.5 (5.0-8.5); URINE APPEARANCE CLOUDY (CLEAR/HAZY); URINE BLOOD NEGATIVE (NEGATIVE); URINE COLOR YELLOW (YELLOW); URINE GLUCOSE NEGATIVE (NEGATIVE); URINE KETONE NEGATIVE (NEGATIVE); URINE NITRATE NEGATIVE (NEGATIVE); URINE PROTEIN(semi-quant) NEGATIVE (NEGATIVE); URINE UROBILINOGEN 0.2 E.U/dL (0.2-1.0)
[2023-10-11] MEDS ORDERED: Iohexol 300 - 100 ML VIAL IV ONE (16:05)
[2023-10-11 16:12] LABS: INR 2.5 (0.8-3.0); PROTHROMBIN TIME 26.3 SECONDS (9.7-12.8)
[2023-10-11 18:57] VITALS: BP 124/63; PULSE 60
== END 2023-10-11 19:20 | disposition home or self-care (01) ==
LOC: COL.ER 13:40
PROVIDERS: Nurse Practitioner
DX: R10.9 Unspecified abdominal pain (principal); R06.02 Shortness of breath; I48.91 Unspecified atrial fibrillation; Z79.01 Long term (current) use of anticoagulants
CPT/HCPCS: Q9967